=== PATIENT | female | born 1945 | race Hispanic/Latino ===

== ENCOUNTER 2018-05-30 12:50 | Outpatient (CLI) | payer MEDICARE, OTHER | END 2018-05-30 12:51 | disposition home or self-care (01) | LOC: BICMAMMO 12:50 | PROVIDERS: ATTEND Internal Medicine | DX: Z12.31 Encounter for screening mammogram for malignant neoplasm of breast (principal) | CPT/HCPCS: 77063; 77067 ==

== ENCOUNTER 2019-06-12 11:19 | Outpatient (CLI) | payer MEDICARE, OTHER ==
--- NOTE | 2019-06-12 13:45 | MMO ---
Bilateral MAMMO Bilat Screen [facility]. CLINICAL HISTORY: Patient is 74 years old and is seen for screening. The patient has no family history of breast cancer. The patient has no personal history of cancer. VIEWS: The views performed were: bilateral craniocaudal with tomosynthesis and bilateral mediolateral oblique with tomosynthesis. FILMS COMPARED: The present examination has been compared to prior imaging studies performed at [facility] on 04/29/2015, 05/11/2016, 05/17/2017 and 05/30/2018. MAMMOGRAM FINDINGS: The breasts are heterogeneously dense, which could obscure a lesion on mammography. There are benign appearing calcifications seen in both breasts. There are no suspicious masses, suspicious calcifications, or new areas of architectural distortion. IMPRESSION: THERE IS NO MAMMOGRAPHIC EVIDENCE OF MALIGNANCY. A ROUTINE FOLLOW-UP MAMMOGRAM IN 1 YEAR IS RECOMMENDED. THE RESULTS OF THIS EXAM WERE SENT TO THE PATIENT. ACR BI-RADS Category 2 - Benign finding MAMMOGRAPHY NOTE: 1. A negative mammogram report should not delay a biopsy if a dominant of clinically suspicious mass is present. 2. Approximately 10% to 15% of breast cancers are not detected by mammography. 3. Adenosis and dense breasts may obscure an underlying neoplasm. Reported by: ANTONI CORTEZ MD Electonically Signed: [id number]
== END 2019-06-12 11:20 | disposition home or self-care (01) ==
LOC: BICMAMMO 11:19
PROVIDERS: ATTEND Internal Medicine
DX: Z12.31 Encounter for screening mammogram for malignant neoplasm of breast (principal)
CPT/HCPCS: 77063; 77067

== ENCOUNTER 2023-11-01 20:31 | Emergency (ER) | payer MEDICARE ==
[2023-11-01 21:23] LABS: #Monocytes 0.2 thou/uL (0.11-0.59); #Neutrophils 6.4 thou/uL (1.40-6.50); %Basophils 0.1 % (0.0-1.0); %Eosinophils 0.1 % (0.0-10.0); %Lymphocytes 9.6 % (21.0-51.0); %Monocytes 2.5 % (0.0-10.0); %Neutrophils 87.4 % (42.0-75.0); Hematocrit 39.4 % (36.0-47.0); Hemoglobin 13.2 g/dL (12.0-16.0); Mean Corpuscular HGB CONC 33.5 g/dL (32.0-36.0); Mean Corpuscular Hemoglobin 30.5 pg (27.0-31.0); Mean Platelet Volume 9.5 fL (7.4-10.4); Platelet Count 219 10x3/uL (130-400); Red Blood Cell (RBC) Count 4.33 mill/uL (4.20-5.40); White Blood Cell (WBC) Count 7.3 10x3/uL (4.8-10.8)
[2023-11-01 21:45] LABS: ALT (SGPT) 14 U/L (8-55); AST (SGOT) 22 U/L (5-34); Albumin 4.2 g/dL (3.4-4.8); Alkaline Phosphatase 88 U/L (40-110); Anion Gap 14 mmol/L (10-20); BUN (Urea Nitrogen) 10 mg/dL (9.8-20.1); Bilirubin, Total 0.7 mg/dL (0.2-1.2); Calc. Creatinine Clearance 0 mL/min (70-130); Calcium 9.5 mg/dL (7.8-10.44); Carbon Dioxide 25 mmol/L (23-31); Chloride 101 mmol/L (98-107); Estimated GFR 79; Globulin 3.3 g/dL (2.4-3.5); Glucose 162 mg/dL (83-110); Potassium 3.8 mmol/L (3.5-5.1); Protein, Total 7.5 g/dL (5.8-8.1); Sodium 136 mmol/L (136-145)
[2023-11-01] MEDS ORDERED: Meclizine HCl 25 MG TAB ONE (21:48)
[2023-11-01 22:21] LABS: Troponin I Less than 0.010 ng/mL (< 0.028)
[2023-11-01 22:24] LABS: Magnesium 1.8 mg/dL (1.6-2.6)
== END 2023-11-01 23:30 | disposition home or self-care (01) ==
LOC: ERS 20:31
DX: R42 Dizziness and giddiness (principal); R11.2 Nausea with vomiting, unspecified; E03.9 Hypothyroidism, unspecified; I51.7 Cardiomegaly
CPT/HCPCS: 36415; 71045; 80053; 83735; 84484; 85025; 93005